=== PATIENT | female | born 1960 | race Caucasian/White ===

== ENCOUNTER 2018-12-10 08:03 | Emergency (ER) | payer BC, OTHER ==
[2018-12-10 08:19] VITALS: BP 107/69
--- NOTE | 2018-12-10 08:22 | UC ---
UC General HPI - HPI Summary HPI Summary: Pleasant 58 yo female c/o progressive cough x nearly one week. Tired. + sick contact, but etiology unclear. No rash. No sob except with heavy cough. No GI Issues. R ear "pops" a little. - History of Current Complaint Chief Complaint: UCRespiratory Stated Complaint: CHEST CONGESTION Time Seen by Provider: 12/10/18 08:22 Hx Obtained From: Patient Pain Intensity: 0 - Allergy/Home Medications Allergies/Adverse Reactions: Allergies Allergy/AdvReac Type Severity Reaction Status Date / Time doxycycline Allergy Rash Verified 12/10/18 08:20 PMH/Surg Hx/FS Hx/Imm Hx Previously Healthy: Yes - Surgical History Surgical History: None - Social History Alcohol Use: Weekly Substance Use Type: None Smoking Status (MU): Never Smoked Tobacco Review of Systems All Other Systems Reviewed And Are Negative: Yes Constitutional: Positive: Fatigue Skin: Positive: Negative Eyes: Positive: Negative ENT: Positive: Sinus Congestion Respiratory: Positive: Cough Cardiovascular: Positive: Negative Gastrointestinal: Positive: Negative Genitourinary: Positive: Negative Motor: Positive: Negative Neurovascular: Positive: Negative Musculoskeletal: Positive: Negative Neurological: Positive: Negative Psychological: Positive: Negative Is Patient Immunocompromised?: No Physical Exam Triage Information Reviewed: Yes Appearance: Well-Nourished, Other: - looks tired, but nad Vital Signs: Initial Vital Signs Temp 96.2 F 12/10/18 08:18 Pulse 73 12/10/18 08:18 Resp 16 12/10/18 08:18 BP 107/69 12/10/18 08:18 Pulse Ox 99 12/10/18 08:18 Vital Signs Reviewed: Yes Eye Exam: Normal ENT: Positive: TM dull - dull rtx'd tm on R. L TM nad Neck exam: Normal - L lat adenopathy Neck: Positive: Supple, Nontender Respiratory Exam: Other - + course BS, but equal. Cardiovascular Exam: Normal Cardiovascular: Positive: RRR, Pulses Normal, Brisk Capillary Refill Abdominal Exam: Normal Abdomen Description: Positive: Nontender Musculoskeletal Exam: Normal Neurological Exam: Normal Psychological Exam: Normal Skin Exam: Normal - nondiaphoretic. no visible or reported rash. Course/Dx - Course Course Of Treatment: Reviewed coa / tx plan. Questions as posed answered to the best of my ability. Declines work note. - Diagnoses Provider Diagnosis: Bronchitis Discharge ED - Sign-Out/Discharge Documenting (check all that apply): Patient Departure All imaging exams completed and their final reports reviewed: No Studies - Discharge Plan Condition: Stable Disposition: HOME Prescriptions: Albuterol HFA INHALER* [Ventolin HFA Inhaler*] 1 - 2 puff INH Q4H PRN #1 mdi PRN Reason: Wheezing Azithromyxin SATURNINO (NF) [Z-Saturnino (Zithromax) 250 mg tabs #6] 2 tab PO .TODAY, THEN 1 DAILY #6 tab Benzonatate CAP* [Tessalon 100 MG CAP*] 100 mg PO TID PRN #30 cap PRN Reason: Cough Patient Education Materials: Acute Bronchitis (ED) Referrals: Ifeoma Fry MD [Primary Care Provider] - Additional Instructions: Follow up with your primary care physician, per routine. Seek medical attention for worse or new problems in the meantime. Hydrate. - Billing Disposition and Condition Condition: STABLE Disposition: Home
== END 2018-12-10 09:18 | disposition home or self-care (01) ==
LOC: UCEAST 08:03
DX: J40 Bronchitis, not specified as acute or chronic (principal); R53.83 Other fatigue
CPT/HCPCS: 99212; G0463